=== PATIENT | female | born 1945 | race Caucasian/White ===

== ENCOUNTER → 2016-10-07 | Outpatient (CLI) | payer OTHER ==
[~2016-10-07] MED LIST: ADVAIR HFA 115-12 GM INH; ASPIRIN EC81 M1 PO; BREO ELLIPTA 21 EACH; COMBIVENT MININEB; COMBIVENT U/D3 M2 INH; COREG3.125 MG PO
--- NOTE | ~2016-10-07 | US85 ---
[facility] A Service [facility] RADIOLOGY TEXT RESULTS PATIENT: EDUARD RODRÍGUEZ LOCATION: CNIV : 41 UNIT #: [id number] AGE: [address]: Иван Jiménez MD SEX: F ORDER DR: [id number] [facility] [address] [place], [place] [address] [id number] O MR#: [id number] Acc #: [id number] NAME: EDUARD RODRÍGUEZ. : 1945 SEX: F STUDY DATE/TIME: 10/07/2016 14:27 UNIT: CNIV ROOM: STUDY DESCRIPTION: [facility] or [facility] St[facility] Attending Physician: Иван Jiménez M.D. Ordering Physician: Иван Jiménez M.D. Primary Care Physician: Иван Jiménez M.D. MEDICAL IMAGING REPORT This report is preliminary unless electronic signature is present EXAM Right lower extremity venous duplex 10/07/2016 HISTORY Right lower extremity pain and swelling for 2 weeks. Right foot pain. Evaluate for deep vein thrombosis. TECHNIQUE Venous ultrasound examination of the right lower extremity was performed using grayscale, spectral Doppler and color flow Doppler imaging. FINDINGS The examination is negative. There is no evidence of right lower extremity deep venous thrombus from the groin to the lower calf. Visualized greater saphenous vein is also patent. IMPRESSION Negative examination. No evidence of right lower extremity deep venous thrombosis. Dictated by... Landon Lind M.D. THIS IS AN ELECTRONICALLY VERIFIED REPORT Landon Lind M.D. at 10/10/2016 8:14 AM KRT/pcl TD: 10/07/2016 20:01 [facility] A Service [facility] RADIOLOGY TEXT RESULTS PATIENT: EDUARD RODRÍGUEZ LOCATION: CNIV : 43 UNIT #: [id number] AGE: [address]: Иван Jiménez MD SEX: F ORDER DR: BRADEN #: [id number] MEDICAL IMAGING REPORT COPY
== END | disposition home or self-care (01) ==
LOC: CNIV 13:54
DX: M79.604 Pain in right leg (principal)
CPT/HCPCS: 93971